=== PATIENT | female | born 1975 | race Caucasian/White ===

== ENCOUNTER → 2018-02-09 | Outpatient (CLI) | payer OTHER ==
[~2018-02-09] MED LIST: BIRTH CONTROL PILL; CLARITIN 1010 MG/TAB PO; COLACE100 MG/10 PO; METFORMIN750 MG PO; MULTI-VITAMIN W1 TA1 PO; PRENATAL1 TA1 PO; ZANTAC 150150 MG PO
== END ==
LOC: MC.RAD 07:00
DX: Z12.31 Encounter for screening mammogram for malignant neoplasm of breast (principal)

== ENCOUNTER → 2020-03-23 | Outpatient (CLI) | payer OTHER | LOC: MC.RAD 07:15 | DX: Z12.31 Encounter for screening mammogram for malignant neoplasm of breast (principal) ==

== ENCOUNTER → 2022-12-12 | Outpatient (CLI) | payer OTHER | LOC: CANSCHCLI → MC.RAD 07:48 | DX: Z12.31 Encounter for screening mammogram for malignant neoplasm of breast (principal) ==